=== PATIENT | female | born 1965 | race Caucasian/White ===

== ENCOUNTER → 2019-07-15 | Outpatient (CLI) | payer OTHER ==
--- NOTE | 2019-07-15 17:31 | PCVCIMAG ---
APPROVED REPORT Study performed: 07/15/2019 16:11:08 EXAM: Comprehensive 2D, Doppler, and color-flow Echocardiogram Patient Location: Echo lab Room #: 1 BSA: 2.05 HR: 63 bpmBP: 114/70 mmHg Rhythm: NSR Other Information Study Quality: Adequate Risk Factors: Cardiac Risk Factors: Hyperlipidemia Indications Pre-Op Dyspnea Chest Pain 2D Dimensions IVSd: 10.55 (7-11mm)LVOT Diam: 20.00 (18-24mm) LVDd: 44.55 mm PWd: 10.55 (7-11mm)Ascending Ao: 27.71 (22-36mm) LVDs: 29.72 (25-40mm) Left Atrium: 38.22 (27-40mm) Aortic Root: 27.76 mm LV Single Plane 4CH: 58.26 % LV Single Plane 2CH: 67.50 % Biplane EF: 63.1 % Volumes Left Atrial Volume (Systole) Single Plane 4CH: 43.39 mLSingle Plane 2CH: 69.55 mL LA ESV Index: 28.00 mL/m2 Aortic Valve AoV Peak Paras.: 1.47 m/s AO Peak Gr.: 8.63 mmHgLVOT Max P.63 mmHg LVOT Max V: 0.95 m/s [facility] Vmax: 2.13 cm2 Mitral Valve E/A Ratio: 1.1 MV Decel. Time: 227.64 ms MV E Max Paras.: 0.96 m/s MV A Paras.: 0.89 m/s IVRT: 79.58 ms TDI E/Lateral E': 9.60E/Medial E': 10.67 Medial E' Paras.: 0.09 m/s Lateral E' Paras.: 0.10 m/s Pulmonary Valve PV Peak Paras.: 0.89 m/sPV Peak Gr.: 3.19 mmHg ND End Vmax: 0.77 m/s Pulmonary Vein P Vein S: 0.42 m/sP Vein A: 0.23 m/s P Vein D: 0.44 m/sP Vein A Dur.: 96.9 msec P Vein S/D Ratio: 0.95 Tricuspid Valve TR Peak Paras.: 2.33 m/sRAP Estimate: 7.00 mmHg TR Peak Gr.: 21.68 mmHg PA Pressure: 29.00 mmHg Left Ventricle The left ventricle is normal size. There is normal LV segmental wall motion. There is normal left ventricular wall thickness. Left ventricular systolic function is normal. The left ventricular ejection fraction is within the normal range. LVEF is 60-65%. The left ventricular diastolic function is normal. Right Ventricle The right ventricle is normal size. The right ventricular systolic function is normal. Atria The left atrium size is normal. The right atrium size is normal. Aortic Valve The aortic valve is normal in structure. No aortic regurgitation is present. There is no aortic valvular stenosis. Mitral Valve The mitral valve is normal in structure. Mild mitral regurgitation. No evidence of mitral valve stenosis. Tricuspid Valve The tricuspid valve is normal in structure. Trace tricuspid regurgitation. Pulmonary artery pressure is 29 mmHg. Pulmonic Valve The pulmonary valve is normal in structure. Mild pulmonic regurgitation. Great Vessels The aortic root is normal in size. The ascending aorta is normal in size. IVC is normal in size and collapses >50% with inspiration. Pericardium There is no pericardial effusion. <Conclusion> Left ventricular systolic function is normal. There is normal LV segmental wall motion. LVEF is 60-65%. Normal diastolic function The aortic valve is normal in structure. No aortic regurgitation or stenosis The mitral valve is normal in structure. Mild mitral regurgitation. Trace tricuspid regurgitation. Pulmonary artery pressure of 29 mmHg. There is no pericardial effusion.
--- NOTE | 2019-07-15 17:33 | PCVCIMAG ---
APPROVED REPORT Patient Location: Echo lab- [facility] STRESS TEST Room #: 1 Stress Nurse: Daisy Nunez RN INDICATIONS : Pre-op clearance, Dyspnea, chest pain The patient exercised according to the MARTINEZ protocol for 6:00 mins; achieving a work level of 7.2 METS. The resting heart rate of 61 bpm dipak to a maximum heart rate of 155 bpm. This value represent 92% of the maximal, age-predicted heart rate. The resting blood pressure of 114/70 mmHg, dipak to a maximum blood pressure of 156/84 mmHg. The exercise test was stopped due to fatigue and knee pain . Resting EKG: Normal sinus rhythm normal tracing Stress EKG: No dysrhythmias. No diagnostic ischemic electrocardiographic changes. Conclusion 1. Maximal treadmill exercise study negative for exercise-induced myocardial ischemia. 2. The study was associated with average exercise capacity (7.2 METS). Low Bucio treadmill exercise score
== END | disposition home or self-care (01) ==
LOC: PCVCIMAG 16:04
PROVIDERS: ATTEND Internal Medicine
DX: Z01.818 Encounter for other preprocedural examination (principal); I08.8 Other rheumatic multiple valve diseases; R07.9 Chest pain, unspecified; R06.00 Dyspnea, unspecified; E78.5 Hyperlipidemia, unspecified
CPT/HCPCS: 93017; 93306